=== PATIENT | male | born 1975 | race Caucasian/White ===

== ENCOUNTER 2020-02-11 09:47 | Emergency (ER) | payer BC ==
[2020-02-11] MEDS ORDERED: KETOROLAC 30 MG/ML INJ ONE (10:16)
[2020-02-11] MEDS ORDERED: NA CHLORIDE 0.9% 500 ML ONE (10:16)
[2020-02-11] MEDS ORDERED: ONDANSETRON 4 MG/2 ML VIAL ONE ×2 (10:16→10:59)
[2020-02-11 10:21] LABS: Absolute Lymphocytes (CBC) 1.7 K/uL (0.7-4.9); Basophils % 0.7 % (0-1.3); Hematocrit 48.3 % (39.6-49.0); Lymphocytes % 19.7 % (15.3-44.8); MPV 7.9 fL (7.6-11.3); RBC Red Blood Cell Count 5.03 M/uL (4.33-5.43)
[2020-02-11 10:34] LABS: Potassium 4.4 mmol/L (3.5-5.1)
--- NOTE | 2020-02-11 11:07 | RAD REPORT ---
EXAM DESCRIPTION: CT - Abdomen Pelvis Wo Contrast - 02/11/2020 10:25 am CLINICAL HISTORY: Abdominal pain COMPARISON: None TECHNIQUE: Computed axial tomography of the abdomen and pelvis was obtained. IV and oral contrast we re not requested. All CT scans are performed using dose optimization technique as appropriate and may include automated exposure control or mA/KV adjustment according to patient size. FINDINGS: The evaluation of solid organs, vessels and bowel is limited secondary to the lack of con trast administration. The liver, spleen, pancreas, adrenals and left kidney appear grossly normal. Tiny nonobstructing right renal calculus. Moderate right hydronephrosis. There are 2 calculi within t he mid to distal right ureter. The largest measures 5.5 millimeters with a Hounsfield unit 812 The appendix is normal. There is no evidence of diverticulitis. IMPRESSION: Two calculi within the mid to distal right ureter resulting in moderate right hydronephr osis
[2020-02-11] MEDS ORDERED: MORPHINE 4 MG/ML SYR ONE (11:40)
[2020-02-11 11:48] LABS: Urine Appearance CLEAR; Urine Bilirubin NEGATIVE (NEG); Urine Blood 3+ (NEG); Urine Color YELLOW; Urine Glucose NEGATIVE (NEG); Urine Protein NEGATIVE (NEG); Urine Specific Gravity 1.025 (1.005-1.030); Urine Urobilinogen 0.2 mg/dL (0.2-1.0); Urine pH 5.5 (5.0-7.0)
[2020-02-11 11:52] LABS: Urine Microscopic Reflex ORDER UMIC
[2020-02-11 12:06] LABS: Urine Bacteria 20-50 /HPF (NONE SEEN); Urine Culture Reflex Order REFLEXED; Urine RBC 20-50 /HPF (NONE SEEN)
[2020-02-11 12:07] LABS: Urine Blood 2+ (NEG); Urine Glucose NEGATIVE (NEG); Urine Protein NEGATIVE (NEG); Urine pH 5.5 (5.0-7.0)
--- NOTE | 2020-02-11 13:00 | ER ---
Nurse's Notes [facility] Name: Frandy Jeffery Age: 44 yrs Sex: Male : 1975 Arrival Date: 02/11/2020 Time: 09:48 Bed 5 Private MD: Ciro Cormier E Diagnosis: Unspecified renal colic;Nephrolithiasis Presentation: 02/10 09:59 Chief complaint: Patient states: right side pain since 1 a.m. went away and came back iw this morning, vomited once, right groin pain since Friday, no urinary s/s , denies diarrhea. Coronavirus screen: Proceed with normal triage. Patient denies a cough. Patient denies shortness of breath or difficulty breathing. Patient denies measured and/or subjective temperature greater than 100.4F prior to today's visit. Patient denies travel on a cruise ship or to a country the [facility] currently lists as an affected area. Patient denies contact with known and/or suspected case of COVID-19. Ebola Screen: Patient negative for fever greater than or equal to 101.5 degrees Fahrenheit, and additional compatible Ebola Virus Disease symptoms Patient denies exposure to infectious person. Patient denies travel to an Ebola-affected area in the 21 days before illness onset. No symptoms or risks identified at this time. Initial Sepsis Screen: Does the patient meet any 2 criteria? No. Patient's initial sepsis screen is negative. Does the patient have a suspected source of infection? No. Patient's initial sepsis screen is negative. Risk Assessment: Do you want to hurt yourself or someone else? Patient reports no desire to harm self or others. Onset of symptoms was February 11, 2020. 09:59 Method Of Arrival: Ambulatory iw 09:59 Acuity: LUNA 3 iw Historical: - Allergies: 10:02 No Known Allergies; iw - Home Meds: 10:02 Adderall XR 60 mg Oral cp24 1 cap once daily [Active]; iw - PMHx: 10:02 None; iw - Social history:: Smoking status: Patient reports the use of cigarette tobacco products. - Family history:: not pertinent. Screenin:57 Abuse screen: Denies threats or abuse. Denies injuries from another. Nutritional sv screening: No deficits noted. Tuberculosis screening: No symptoms or risk factors identified. Fall Risk None identified. Assessment: 10:50 Reassessment: Patient appears in no apparent distress at this time. Patient and/or sv family updated on plan of care and expected duration. Pain level reassessed. Patient is alert, oriented x 3, equal unlabored respirations, skin warm/dry/pink. GI: Pt is actively vomiting bile. 11:43 Reassessment: Patient appears in no apparent distress at this time. Patient and/or sv family updated on plan of care and expected duration. Pain level reassessed. Patient is alert, oriented x 3, equal unlabored respirations, skin warm/dry/pink. 13:07 Reassessment: Patient appears in no apparent distress at this time. Patient and/or vc family updated on plan of care and expected duration. Pain level reassessed. Patient is alert, oriented x 3, equal unlabored respirations, skin warm/dry/pink. Patient states symptoms have improved. Vital Signs: 09:59 BP 127 / 77; Pulse 61; Resp 16; Temp 97.0; Pulse Ox 99% on R/A; iw 11:06 BP 132 / 79; Pulse 54; Resp 16; Temp 97.5(O); Pulse Ox 99% on R/A; sv 12:15 BP 119 / 82; Pulse 56; Resp 16; Pulse Ox 99% ; sv ED Course: 09:48 Patient arrived in ED. am2 09:48 Ciro Cormier MD is Private Physician. am2 09:54 Indigo Choudhury, DIEGO is Primary Nurse. sv 09:56 Hank Rosas DO is Attending Physician. ms3 09:56 Arm band placed on Patient placed in an exam room, on a stretcher. sv 09:57 Patient has correct armband on for positive identification. Bed in low position. Call sv light in reach. Pulse ox on. NIBP on. 10:01 Triage completed. iw 10:02 ED physician to see patient. sv 10:05 Inserted saline lock: 20 gauge in right antecubital area, using aseptic technique. sv Blood collected. Flushed right antecubital with 5 ml normal saline. 10:24 CT Abd/Pelvis - Without Contrast In Process Unspecified. EDMS 11:56 Urine Microscopic Only Sent. sv 12:57 Mary Lou Gamble MD is Referral Physician. ms3 Administered Medications: 10:18 Drug: TORadol - Ketorolac 15 mg Route: IVP; Site: right antecubital; sv 10:50 Follow up: Response: No adverse reaction sv 10:18 Drug: Zofran (Ondansetron) 4 mg Route: IVP; Site: right antecubital; sv 10:50 Follow up: Response: No adverse reaction; No change in condition sv 10:19 Drug: Sodium Chloride 0.9% 500 ml Route: IVPB; Site: right antecubital; sv 13:07 Follow up: IV Status: Completed infusion; IV Intake: 500ml vc 10:55 Drug: Zofran (Ondansetron) 4 mg Route: IVP; Site: right antecubital; jl7 11:43 Follow up: Response: No adverse reaction sv 11:35 Drug: morphine 4 mg Route: IVP; Site: right antecubital; sv 13:07 Follow up: Response: No adverse reaction; Pain is decreased vc Intake: 13:07 IV: 500ml; Total: 500ml. vc Outcome: 12:59 Discharge ordered by ms3 13:08 Discharged to home ambulatory. vc 13:08 Condition: improved 13:08 Discharge instructions given to patient, Instructed on discharge instructions, follow up and referral plans. medication usage, Demonstrated understanding of instructions, follow-up care, medications, Prescriptions given X 1. 13:08 Patient left the ED. vc Signatures: Dispatcher [employer] EDMS Indigo Choudhury RN RN sv Williams, Irene, RN RN iw Leal, Jahala, RN RN jl7 Anneliese De Leon Vanessa, RN RN vc Sims, Marcus, DO DO ms3
--- NOTE | 2020-02-11 13:00 | EDPHYS ---
Physician Documentation [facility] Name: Frandy Jeffery Age: 44 yrs Sex: Male : 1975 Arrival Date: 02/11/2020 Time: 09:48 Bed 5 Private MD: Ciro Cormier E ED Physician Hank Rosas HPI: 02/10 10:31 This 44 yrs old Male presents to ER via Ambulatory with complaints of ms3 Abdominal Pain. 10:31 The patient complains of pain in the right mid back. Right abdomen. Onset: The ms3 symptoms/episode began/occurred acutely, this morning. Modifying factors: The symptoms are alleviated by nothing. the symptoms are aggravated by nothing. Associated signs and symptoms: Pertinent positives: nausea, vomiting, Pertinent negatives: diarrhea, fever, urinary frequency. Severity of pain: At its worst the pain was severe. Historical: - Allergies: 10:02 No Known Allergies; iw - Home Meds: 10:02 Adderall XR 60 mg Oral cp24 1 cap once daily [Active]; iw - PMHx: 10:02 None; iw - Social history:: Smoking status: Patient reports the use of cigarette tobacco products. - Family history:: not pertinent. ROS: 10:31 Constitutional: Negative for fever, and chills. Eyes: Negative for injury, pain, ms3 redness, and discharge, Neck: Negative for injury, pain, and swelling, Cardiovascular: Negative for chest pain, and palpitations. Respiratory: Negative for shortness of breath, cough, wheezing, and pleuritic chest pain, Back: Negative for injury and pain, MS/Extremity: Negative for injury and deformity, Skin: Negative for injury, rash, and discoloration, Neuro: Negative for headache, weakness, numbness, tingling. 10:31 Abdomen/GI: Positive for abdominal pain, nausea and vomiting. Exam: 10:34 Constitutional: This is a well developed, well nourished patient who is awake, alert, ms3 and in no acute distress. Head/Face: Normocephalic, atraumatic. Eyes: Pupils equal round and reactive to light, extra-ocular motions intact. Lids and lashes normal. Conjunctiva and sclera are non-icteric and not injected. Cornea within normal limits. Periorbital areas with no swelling, redness, or edema. Neck: Trachea midline, no cervical lymphadenopathy. Supple, full range of motion without nuchal rigidity, or vertebral point tenderness. No Meningismus. Chest/axilla: Normal chest wall appearance and motion. Nontender with no deformity. Cardiovascular: Regular rate and rhythm with a normal S1 and S2. No gallops, murmurs, or rubs. Normal PMI, no JVD. No pulse deficits. Respiratory: Lungs have equal breath sounds bilaterally, clear to auscultation and percussion. No rales, rhonchi or wheezes noted. No increased work of breathing, no retractions or nasal flaring. 10:34 Abdomen/GI: Inspection: abdomen appears normal, Bowel sounds: normal, Palpation: abdomen is soft and non-tender, in all quadrants. 10:34 Back: CVA tenderness, that is moderate, is noted on the right. 10:34 : Male external genitalia: normal, no discharge, no erythema, no injury, no swelling, ms3 Creamasteric reflex intact bilaterally, Normal Testicular Lie. Vital Signs: 09:59 BP 127 / 77; Pulse 61; Resp 16; Temp 97.0; Pulse Ox 99% on R/A; iw 11:06 BP 132 / 79; Pulse 54; Resp 16; Temp 97.5(O); Pulse Ox 99% on R/A; sv 12:15 BP 119 / 82; Pulse 56; Resp 16; Pulse Ox 99% ; sv MDM: 10:00 Patient medically screened. ms3 10:34 Differential diagnosis: nephrolithiasis, Appy, Abdominal pain, UTI. ms3 11:29 Data reviewed: vital signs, nurses notes. ms3 13:00 Counseling: I had a detailed discussion with the patient and/or guardian regarding: the ms3 historical points, exam findings, and any diagnostic results supporting the discharge/admit diagnosis, lab results, radiology results, the need for outpatient follow up, a urologist, to return to the emergency department if symptoms worsen or persist or if there are any questions or concerns that arise at home. ED course: Discussed labs and CT with pt. Pt to follow up with Dr Gamble in 1-2 days. Pt understands/ agrees with plan. All questions answered. Return precautions discussed. Pt improved, nad, non-toxic, ambulatory in ED.. 02/10 10:03 Order name: CBC with Diff; Complete Time: 11:25 ms3 02/10 10:03 Order name: Basic Metabolic Panel; Complete Time: 11:25 ms3 02/10 10:03 Order name: Urinalysis ms3 02/10 11:42 Order name: Urine Dipstick--Ancillary (enter results) eb 02/10 11:55 Order name: Urine Microscopic Only EDMS 02/10 12:08 Order name: Urine Culture EDAK 02/10 10:03 Order name: CT Abd/Pelvis - Without Contrast; Complete Time: 11:25 ms3 Administered Medications: 10:18 Drug: TORadol - Ketorolac 15 mg Route: IVP; Site: right antecubital; sv 10:50 Follow up: Response: No adverse reaction sv 10:18 Drug: Zofran (Ondansetron) 4 mg Route: IVP; Site: right antecubital; sv 10:50 Follow up: Response: No adverse reaction; No change in condition sv 10:19 Drug: Sodium Chloride 0.9% 500 ml Route: IVPB; Site: right antecubital; sv 13:07 Follow up: IV Status: Completed infusion; IV Intake: 500ml vc 10:55 Drug: Zofran (Ondansetron) 4 mg Route: IVP; Site: right antecubital; jl7 11:43 Follow up: Response: No adverse reaction sv 11:35 Drug: morphine 4 mg Route: IVP; Site: right antecubital; sv 13:07 Follow up: Response: No adverse reaction; Pain is decreased vc Disposition: 02/11/20 12:59 Discharged to Home. Impression: Unspecified renal colic, Nephrolithiasis. - Condition is Stable. - Discharge Instructions: Kidney Stones. - Prescriptions for Flomax 0.4 mg Oral Capsule, Sust. Release 24 hr - take 1 capsule by ORAL route once daily 1/2 hour following the same meal each day; 30 capsule. - Medication Reconciliation Form, Thank You Letter, Antibiotic Education, Prescription Opioid Use form. - Follow up: Mary Lou Gamble MD; When: 1 - 2 days; Reason: Recheck today's complaints, Continuance of care. Signatures: Dispatcher [employer] Indigo Carter RN RN sv Williams, Irene, RN RN iw Leal, Jahala, RN RN jl7 Anay Panchal RN RN vc Hank Rosas, DO ISAAC ms3 Corrections: (The following items were deleted from the chart) 13:08 12:59 02/11/2020 12:59 Discharged to Home. Impression: Unspecified renal colic; vc Nephrolithiasis. Condition is Stable. Forms are Medication Reconciliation Form, Thank You Letter, Antibiotic Education, Prescription Opioid Use. Follow up: Mary Lou Gamble; When: 1 - 2 days; Reason: Recheck today's complaints, Continuance of care. ms3
[2020-02-11 13:18] VITALS: O2SAT 99
[2020-02-11 13:21] VITALS: TEMP 97.5
[2020-02-11 13:23] VITALS: BP 119/82
== END 2020-02-11 13:08 | disposition home or self-care (01) ==
LOC: ER 09:47
DX: N20.0 Calculus of kidney (principal); N23 Unspecified renal colic; Z72.0 Tobacco use
CPT/HCPCS: 96365; 85025; 87086; 80048; 36415; 74176; 96375; 99284; 96366; J7040; J2405 ×2; 81003; 81015; 87088

== ENCOUNTER 2021-07-13 03:16 | Emergency (ER) | payer SELFPAY ==
[2021-07-13 03:50] LABS: Absolute Lymphocytes (CBC) 3.5 K/uL (0.7-4.9); Hematocrit 46.1 % (39.6-49.0); Lymphocytes % 42.5 % (15.3-44.8); MPV 7.1 fL (7.6-11.3); RBC Red Blood Cell Count 4.86 M/uL (4.33-5.43)
[2021-07-13] MEDS ORDERED: MORPHINE 4 MG/ML SYR ONE (03:58)
[2021-07-13] MEDS ORDERED: ONDANSETRON 4 MG/2 ML VIAL ONE (03:58)
[2021-07-13] MEDS ORDERED: NA CHLORIDE 0.9% 1,000 ML ONE (03:58)
[2021-07-13 04:12] LABS: Albumin 3.6 g/dL (3.4-5.0); Bilirubin Direct 0.2 mg/dL (0-0.2); Bilirubin Total 0.6 mg/dL (0.2-1.0)
[2021-07-13] MEDS ORDERED: KETOROLAC 30 MG/ML INJ ONE (04:27)
[2021-07-13 04:32] LABS: Urine Blood 3+ (Negative); Urine Glucose Negative (Negative); Urine Protein Negative (Negative); Urine Specific Gravity >=1.030 (1.005-1.030); Urine pH 6.5 (5.0-7.0)
--- NOTE | 2021-07-13 04:38 | EDPHYS ---
Physician Documentation [facility] Name: Frandy Jeffery Age: 46 yrs Sex: Male : 1975 Arrival Date: 07/13/2021 Time: 03:18 Bed 23 Private MD: ED Physician Yvon Woodward HPI: 07/13 03:34 This 46 yrs old Male presents to ER via Ambulatory with complaints of mh7 Possible Kidney Stone. 03:34 The patient complains of pain in the left flank. The pain does not radiate. Onset: The mh7 symptoms/episode began/occurred just prior to arrival, today. Modifying factors: The symptoms are alleviated by nothing. the symptoms are aggravated by nothing. Associated signs and symptoms: Pertinent positives: dysuria, nausea, vomiting, Pertinent negatives: diarrhea, dizziness, fever, urinary frequency, headache, hematuria, pain radiating to the lower extremities. Severity of pain: At its worst the pain was moderate today, in the emergency department the pain is unchanged. - Immunization history:: Adult Immunizations up to date. - Social history:: Smoking status: Patient reports the use of cigarette tobacco products. ROS: 03:34 Constitutional: Negative for fever, chills, and weight loss, Eyes: Negative for injury, mh7 pain, redness, and discharge, ENT: Negative for injury, pain, and discharge, Neck: Negative for injury, pain, and swelling, Cardiovascular: Negative for chest pain, palpitations, and edema, Respiratory: Negative for shortness of breath, cough, wheezing, and pleuritic chest pain, MS/Extremity: Negative for injury and deformity, Skin: Negative for injury, rash, and discoloration, Neuro: Negative for headache, weakness, numbness, tingling, and seizure, Psych: Negative for depression, anxiety, suicide ideation, homicidal ideation, and hallucinations, Allergy/Immunology: Negative for hives, rash, and allergies, Endocrine: Negative for neck swelling, polydipsia, polyuria, polyphagia, and marked weight changes, Hematologic/Lymphatic: Negative for swollen nodes, abnormal bleeding, and unusual bruising. Exam: 03:34 Head/Face: Normocephalic, atraumatic. Eyes: Pupils equal round and reactive to light, mh7 extra-ocular motions intact. Lids and lashes normal. Conjunctiva and sclera are non-icteric and not injected. Cornea within normal limits. Periorbital areas with no swelling, redness, or edema. Neck: Trachea midline, no thyromegaly or masses palpated, and no cervical lymphadenopathy. Supple, full range of motion without nuchal rigidity, or vertebral point tenderness. No Meningismus. Chest/axilla: Normal chest wall appearance and motion. Nontender with no deformity. No lesions are appreciated. Cardiovascular: Regular rate and rhythm with a normal S1 and S2. No gallops, murmurs, or rubs. Normal PMI, no JVD. No pulse deficits. Respiratory: Lungs have equal breath sounds bilaterally, clear to auscultation and percussion. No rales, rhonchi or wheezes noted. No increased work of breathing, no retractions or nasal flaring. 03:34 Skin: Warm, dry with normal turgor. Normal color with no rashes, no lesions, and no evidence of cellulitis. MS/ Extremity: Pulses equal, no cyanosis. Neurovascular intact. Full, normal range of motion. Neuro: Awake and alert, GCS 15, oriented to person, place, time, and situation. Cranial nerves II-XII grossly intact. Motor strength 5/5 in all extremities. Sensory grossly intact. Cerebellar exam normal. Normal gait. Psych: Awake, alert, with orientation to person, place and time. Behavior, mood, and affect are within normal limits. 03:34 Constitutional: The patient appears in no acute distress, alert, awake, uncomfortable. 03:34 Abdomen/GI: Inspection: abdomen appears normal, Bowel sounds: normal, in all quadrants, Palpation: moderate abdominal tenderness, in the left lower quadrant, mass, is not appreciated, rebound tenderness, is not appreciated, voluntary guarding, is not appreciated, involuntary guarding, is not appreciated, no appreciated organomegaly, Rectal exam: the exam is deferred, because of patient request, Indicators: McBurney's point is not tender, Gomez's sign is negative, Rovsing's sign is negative, Obturator sign is negative, Psoas sign is negative, Liver: no appreciated palpable abnormalities, Hernia: not appreciated. 03:34 Back: normal spinal alignment noted, CVA tenderness, that is moderate, is noted on the left, vertebral tenderness, is not appreciated, muscle spasm, is not present. Vital Signs: 03:30 BP 150 / 110 LA Sitting (auto/reg); Pulse 79; Resp 24; Temp 96.8; Pulse Ox 100% on R/A; bc5 Weight 113.4 kg; Height 5 ft. 11 in. (180.34 cm); Pain 10/10; 03:42 BP 150 / 110; Pulse 79; Resp 24; Temp 96.8; Pulse Ox 100% ; Weight 113 kg; Height 5 ft. wr 10 in. (177.80 cm); Pain 10; 03:42 Body Mass Index 35.74 (113.00 kg, 177.80 cm) wr MDM: 04:35 Differential diagnosis: nephrolithiasis, pyelonephritis, UTI, diverticulitis. Data [facility] reviewed: vital signs, nurses notes, old medical records, lab test result(s), CBC, electrolytes, urinalysis, radiologic studies, CT scan. Data interpreted: Pulse oximetry: on room air is 100 %. Interpretation: normal. Counseling: I had a detailed discussion with the patient and/or guardian regarding: the historical points, exam findings, and any diagnostic results supporting the discharge/admit diagnosis, lab results, radiology results, the need for outpatient follow up, a urologist, to return to the emergency department if symptoms worsen or persist or if there are any questions or concerns that arise at home. Response to treatment: the patient's symptoms have resolved after treatment, the patient's blood pressure is in an acceptable range, mental status has returned to baseline, the patient no longer shows bradycardia, the patient is not short of breath, the patient is not tachycardic, the patient's pain is gone, the patient's temperature has normalized. 04:37 Patient medically screened. [facility] 07/13 03:33 Order name: Basic Metabolic Panel; Complete Time: 04:17 [facility] 07/13 03:33 Order name: CBC with Diff; Complete Time: 04:01 [facility] 07/13 03:33 Order name: Hepatic Function; Complete Time: 04:17 [facility] 07/13 03:33 Order name: Lipase; Complete Time: 04:17 [facility] 07/13 03:33 Order name: CT Stone Protocol [facility] 07/13 04:32 Order name: Urine Dipstick-Ancillary; Complete Time: 04:34 EDMS 07/13 03:33 Order name: IV Saline Lock; Complete Time: 03:38 [facility] 07/13 03:33 Order name: Labs collected and sent; Complete Time: 03:39 [facility] 07/13 03:33 Order name: Urine Dipstick-Ancillary (obtain specimen) [facility] Administered Medications: 03:35 Drug: Zofran (Ondansetron) 4 mg Route: IVP; Site: right antecubital; wr 03:36 Drug: morphine 4 mg Route: IVP; Site: right antecubital; wr 03:37 Drug: NS 0.9% 1000 ml Route: IV; Rate: 1000 ml; Site: right antecubital; wr 04:03 Drug: Ketorolac 30 mg Route: IVP; Site: right antecubital; wr Disposition Summary: 07/13/21 04:37 Discharge Ordered Location: Home [facility] Problem: an acute exacerbation [facility] Symptoms: have improved [facility] Condition: Stable [facility] Diagnosis - Calculus of kidney with calculus of ureter [facility] Followup: [facility] - With: Private Physician - When: 1 - 2 days - Reason: Worsening of condition, Recheck today's complaints, Continuance of care, Re-evaluation by your physician Followup: [facility] - With: Anoop Nichols MD - When: 2 - 3 days - Reason: Worsening of condition, Recheck today's complaints Discharge Instructions: - Discharge Summary Sheet [facility] - Kidney Stones, [id number] [facility] Forms: - Medication Reconciliation Form [facility] - Thank You Letter [facility] - Antibiotic Education [facility] - Prescription Opioid Use [facility] Prescriptions: - Flomax 0.4 mg Oral capsule - take 1 capsule by ORAL route once daily 1/2 hour following the same meal each [facility] day; 10 capsule; Refills: 0, Product Selection Permitted - ketorolac 10 mg Oral tablet - take 1 tablet by ORAL route every 6 hours As needed not to exceed 40 mg in [facility] 24hrs; 12 tablet; Refills: 0, Product Selection Permitted - ondansetron 4 mg Oral tablet,disintegrating - place 1 tablet by TRANSLINGUAL route every 8 hours As needed; 10 tablet; [facility] Refills: 0, Product Selection Permitted Signatures: Dispatcher [employer] Yvon Altman MD MD [facility] Deep Maldonado Bella, RN RN bc5
--- NOTE | 2021-07-13 04:38 | ER ---
Nurse's Notes [facility] Name: Frandy Jeffery Age: 46 yrs Sex: Male : 1975 Arrival Date: 07/13/2021 Time: 03:18 Bed 23 Private MD: Diagnosis: Calculus of kidney with calculus of ureter Presentation: 07/13 03:30 Chief complaint: Patient states: Left sided flank pain x 1hr, + nausea, vomiting. Hx of bc5 kidney stones. Coronavirus screen: Vaccine status: Patient reports receiving the 2nd dose of the covid vaccine. Patient reports receiving the 1st dose of the Covid vaccine. Ebola Screen: Patient negative for fever greater than or equal to 101.5 degrees Fahrenheit, and additional compatible Ebola Virus Disease symptoms. Initial Sepsis Screen: Does the patient meet any 2 criteria? No. Patient's initial sepsis screen is negative. Does the patient have a suspected source of infection? No. Patient's initial sepsis screen is negative. Risk Assessment: Do you want to hurt yourself or someone else? Patient reports no desire to harm self or others. Onset of symptoms was July 13, 2021 at 02:00. 03:30 Method Of Arrival: Ambulatory bc5 03:30 Acuity: LUNA 2 bc5 Triage Assessment: 03:35 General: Appears uncomfortable, Behavior is crying. Pain: Complains of pain in abdomen bc5 and pelvis Pain currently is 10 out of 10 on a pain scale. at worst was 10 out of 10 on a pain scale. Quality of pain is described as radiating, sharp, Pain began 1 hour ago. Is continuous. EENT: No deficits noted. Neuro: No deficits noted. Cardiovascular: No deficits noted. Respiratory: No deficits noted. GI: Reports lower abdominal pain, nausea, vomiting. Derm: Skin is diaphoretic. Musculoskeletal: No deficits noted. - Immunization history:: Adult Immunizations up to date. - Social history:: Smoking status: Patient reports the use of cigarette tobacco products. Screenin:37 Abuse screen: Denies threats or abuse. Denies injuries from another. Nutritional bc5 screening: No deficits noted. Tuberculosis screening: No symptoms or risk factors identified. Fall Risk None identified. IV access (20 points). Gait- Normal/Bed Rest/Wheelchair (0 pts). Assessment: 03:52 General: Appears uncomfortable, obese, well nourished. Pain: Complains of pain in wr abdomen Pain at worst was 10 out of 10 on a pain scale. 03:53 General: Behavior is agitated, anxious. wr 03:54 GI: Parent/caregiver reports the patient having vomiting, pain, 1.5 hours ago. wr Vital Signs: 03:30 BP 150 / 110 LA Sitting (auto/reg); Pulse 79; Resp 24; Temp 96.8; Pulse Ox 100% on R/A; bc5 Weight 113.4 kg; Height 5 ft. 11 in. (180.34 cm); Pain 10/10; 03:42 BP 150 / 110; Pulse 79; Resp 24; Temp 96.8; Pulse Ox 100% ; Weight 113 kg; Height 5 ft. wr 10 in. (177.80 cm); Pain 10/10; 03:42 Body Mass Index 35.74 (113.00 kg, 177.80 cm) ED Course: 03:18 Patient arrived in ED. bp1 03:30 Yvon Woodward MD is Attending Physician. [facility] 03:33 Triage completed. bc5 03:37 Arm band placed on right wrist. bc5 03:38 Patient has correct armband on for positive identification. Bed in low position. Call bc5 light in reach. Side rails up X 1. Adult w/ patient. 03:38 Inserted saline lock: 20 gauge in right antecubital area, using aseptic technique. bc5 Blood collected. 03:38 Basic Metabolic Panel Sent. wr 03:39 CBC with Diff Sent. wr 03:39 Hepatic Function Sent. wr 03:39 Lipase Sent. wr 03:39 No provider procedures requiring assistance completed. Inserted saline lock: 20 gauge bc5 in right. 04:03 CT Stone Protocol In Process Unspecified. EDMS 04:26 Standing up in room refused to get vital Sign done,.Said he could not give a urine wr specimen at this time.. 04:36 Anoop Nichols MD is Referral Physician. 7 Administered Medications: 03:35 Drug: Zofran (Ondansetron) 4 mg Route: IVP; Site: right antecubital; wr 03:36 Drug: morphine 4 mg Route: IVP; Site: right antecubital; wr 03:37 Drug: NS 0.9% 1000 ml Route: IV; Rate: 1000 ml; Site: right antecubital; wr 04:03 Drug: Ketorolac 30 mg Route: IVP; Site: right antecubital; wr Outcome: 04:37 Discharge ordered by MD. lawler 05:13 Patient left the ED. Signatures: Dispatcher [employer] EDMS Nicole Bowen Maurice, MD MD [employer] Matamoros Bella, RN RN bc5
[2021-07-13 06:00] VITALS: BP 150/110; TEMP 96.8; O2SAT 100
--- NOTE | 2021-07-13 18:14 | RAD REPORT ---
EXAM DESCRIPTION: CT - Stone Protocol - 07/13/2021 6:41 am CLINICAL HISTORY: The patient is 46 years old and is Male; FLANK PAIN TECHNIQUE: Axial computed tomography images of the abdomen and pelvis without intravenous contrast. Sagittal and coronal reformatted images were created and reviewed. This CT exam was performed usi ng one or more of the following dose reduction techniques: automated exposure control, adjustment o f the mA and/or kV according to patient size, and/or use of iterative reconstruction technique. COMPARISON: CT of the abdomen and pelvis February 11, 2020 FINDINGS: LUNG BASES: Unremarkable. No mass. No consolidation. ABDOMEN: LIVER: The liver is mildly fatty and prominent. GALLBLADDER AND BILE DUCTS: No calcified stones. No ductal dilation. PANCREAS: Unremarkable. No ductal dilation. SPLEEN: Unremarkable. ADRENALS: Unremarkable. No mass. KIDNEYS AND URETERS: Mild left hydroureteronephrosis is present secondary to a 3 mm calculus just beyond the left UVJ within the base of the bladder. Edema of the left kidney with perinephric and periureteral stranding is present. Bilateral intrarenal calcifications are present. There is no hydro nephrosis or hydroureter of the right kidney. STOMACH AND BOWEL: The stomach is minimally distended with food contents. The small bowel is norm al in caliber. A moderate amount of stool is present throughout colon. There is no mucosal thickening or evidence of bowel obstruction. PELVIS: APPENDIX: The appendix is normal in caliber without surrounding inflammation. BLADDER: Unremarkable. No stones. REPRODUCTIVE: Unremarkable as visualized. ABDOMEN and PELVIS: INTRAPERITONEAL SPACE: Unremarkable. No free air. No significant fluid collection. BONES/JOINTS: Minimal degenerative change at L5-S1 is present. SOFT TISSUES: The soft tissues are normal. VASCULATURE: Unremarkable. No abdominal aortic aneurysm. LYMPH NODES: Unremarkable. No enlarged lymph nodes. IMPRESSION: 1. Mild left hydroureteronephrosis is present secondary to a 3 mm calculus just beyond the left UVJ within the base of the bladder. 2. Bilateral nephrolithiasis. Electronically signed by: Anne-Marie Lr MD 07/13/2021 4:12 AM CDT Due to temporary technical issues with the PACS/Fluency reporting system, reports are being signed by the in house radiologists without review as a courtesy to insure prompt reporting. The interpreting radiologist is fully responsible for the content of the report.
== END 2021-07-13 05:13 | disposition home or self-care (01) ==
LOC: ER 03:16
DX: N20.2 Calculus of kidney with calculus of ureter (principal); F17.210 Nicotine dependence, cigarettes, uncomplicated
CPT/HCPCS: 36415; 74176; 76377; 80048; 80076; 81003; 83690; 85025; 96374; 96375; 99284; J2405; J7030